=== PATIENT | female | born 1975 | race African-American/Black ===

== ENCOUNTER 2023-06-09 05:36 | Day surgery (SDC) | payer OTHER ==
[2023-06-08 15:31] VITALS: BMI 22.1
[2023-06-09 11:45] VITALS: TEMP 97.5
[2023-06-09 11:56] VITALS: RESP 20
[2023-06-09 12:01] VITALS: BP 132/89; PULSE 89
== END 2023-06-09 12:15 | disposition home or self-care (01) ==
LOC: JASU-ENDO 05:36
PROVIDERS: ATTEND Student in an Organized Health Care Education/Training Program
PROC: 0DBM8ZX Excision of Descending Colon, Via Natural or Artificial Opening Endoscopic, Diagnostic (ICD-10-PCS; principal; 2023-06-09 10:45)
DX: Z12.11 Encounter for screening for malignant neoplasm of colon (principal); D12.4 Benign neoplasm of descending colon; K59.89 Other specified functional intestinal disorders
CPT/HCPCS: 81025